=== PATIENT | male | born 1965 | race Caucasian/White ===

== ENCOUNTER 2018-04-20 15:16 | Emergency (ER) | payer OTHER ==
[2018-04-20] MEDS ORDERED: SODIUM CHLORIDE 0.9% 1000ML 1,000 ML IV STA (17:34)
--- NOTE | 2018-04-20 17:52 | EMERGENCY ROOM VISIT NOTE ---
History Report prepared by Cy: Ace Childs Under the Supervision of: Dr. Beulah Wilson M.D. First contact with patient: 17:24 Chief Complaint: OTHER COMPLAINT Stated Complaint: ALCHOL WITHDRAWL History of Present Illness The patient is a 53 year old male who presents to the Emergency Room. The patient's coworker states that the patient was drinking alcohol for the past couple weeks, and then stopped around 3 days ago. The coworker notes that he does not know why the patient stopped drinking. Around that time last week, the coworker states that the patient was just "standing around" and reported seeing hallucinations. He notes that the patient was hospitalized at [facility] in [place] after this for one or two days. He denies the patient vomiting or having abdominal pain, but states that he has not been eating. The patient notes a mild headache and occasional diaphoresis. The coworker states that they are from [place] but are currently working in [place]. He states that the patient does not smoke, and currently lives with "other guys." He notes that the patient has been drinking for years and will occasionally stop for about a year, only to start again. He states that the patient has a history of these current symptoms whenever he stops drinking. He reports that the patient experienced urinary retention for 4 days around 6 months ago and needed to " have his urinary system cleaned." Source of History: patient, other (coworker) Onset: last week Position: other (global) Quality: other (hallucinations and "just standing around") Associated Symptoms: + diaphoresis, No vomiting, No abdominal pain Note: loss of appetite Review of Systems See HPI for pertinent positives & negatives. A total of 10 systems reviewed and were otherwise negative. Past Medical & Surgical Medical Problems: (1) Urinary retention Family History Patient reports no known family medical history. Social History Smoking Status: Never Smoker Alcohol Use: heavy Marital Status: single Housing Status: lives with friends Occupation Status: employed Current/Historical Medications Unable to Obtain Active Prescriptions or Reported Meds Allergies Coded Allergies: No Known Allergies (Unverified , 04/20/18) Physical Exam Vital Signs Date Time Temp Pulse Resp B/P (MAP) Pulse Ox O2 Delivery O2 Flow Rate FiO2 04/21/18 00:32 84 14 159/93 96 Room Air 04/20/18 22:36 86 20 165/106 98 Room Air 04/20/18 21:44 82 8/6/18 20:50 82 20 170/100 97 Room Air 04/20/18 19:25 36.8 89 23 151/100 96 Room Air 04/20/18 17:44 80 04/20/18 17:20 83 18 147/94 97 Room Air 04/20/18 15:46 36.7 76 18 162/99 96 Room Air Physical Exam Vital signs reviewed. General: Patient is minimally conversant, Cameroonian speaking only, and appears somewhat somnolent and diaphoretic. HEENT: No scleral icterus, PERRLA, neck supple. Atraumatic. Cardiovascular: Regular rate and rhythm, no extra sounds. Pulmonary: Clear to auscultation bilaterally, normal work of breathing. Abdomen: Soft, nontender, nondistended, positive bowel sounds. Musculoskeletal: Atraumatic, no peripheral edema. Neurologic: Patient awake alert and reluctantly follows commands. Equal strength in all 4 extremities. Cranial nerves 2 through 12 grossly intact. Skin: Warm, dry, no rash Medical Decision & Procedures ER Provider Diagnostic Interpretation: Radiology results as stated below per my review and radiologist interpretation: HEAD WITHOUT CONTRAST (CT) CLINICAL HISTORY: 53 years-old Male presenting with AMS, hallucinations. TECHNIQUE: Multidetector CT imaging of the head was performed without the use of intravenous contrast. IV contrast: None. A dose lowering technique was used consistent with the principles of ALARA (as low as reasonably achievable). COMPARISON: None. CT DOSE (mGy.cm): The estimated cumulative dose is 655.73 mGy.cm. FINDINGS: Administrative Office Clerk topogram: Unremarkable. Ventricles and sulci normal in size. Brain parenchyma normal in appearance with preserved dozier-white differentiation. No mass effect or midline shift. No hemorrhage or acute territorial infarct. No extra-axial fluid collection. Paranasal sinuses and mastoid air cells clear. Calvarium intact. Fracture deformity of the nasal bones, age indeterminate. IMPRESSION: 1. No acute intracranial abnormality. 2. Age-indeterminate nasal bone fractures. Electronically signed by: Steven Robertson M.D. 04/20/2018 6:30 PM Dictated Date/Time: 04/20/2018 6:25 PM Laboratory Results 04/20/18 18:00 Red Blood Count 4.63, Mean Corpuscular Volume 92.9, Mean Corpuscular Hemoglobin 31.5, Mean Corpuscular Hemoglobin Concent 34.0, Mean Platelet Volume 10.7, Neutrophils (%) (Auto) 49.4, Lymphocytes (%) (Auto) 35.8, Monocytes (%) (Auto) 10.0, Eosinophils (%) (Auto) 4.1, Basophils (%) (Auto) 0.4, Neutrophils # (Auto ) 3.82, Lymphocytes # (Auto) 2.77, Monocytes # (Auto) 0.77, Eosinophils # (Auto ) 0.32, Basophils # (Auto) 0.03 04/20/18 18:00 Test 04/20/18 18:00 04/20/18 18:40 04/20/18 20:20 04/20/18 20:45 White Blood Count 7.73 K/uL (4.8-10.8) Red Blood Count 4.63 M/uL (4.7-6.1) Hemoglobin 14.6 g/dL (14.0-18.0) Hematocrit 43.0 % (42-52) Mean Corpuscular Volume 92.9 fL (80-100) Mean Corpuscular Hemoglobin 31.5 pg (25-34) Mean Corpuscular Hemoglobin Concent 34.0 g/dl (32-36) Platelet Count 194 K/uL (130-400) Mean Platelet Volume 10.7 fL (7.4-10.4) Neutrophils (%) (Auto) 49.4 % Lymphocytes (%) (Auto) 35.8 % Monocytes (%) (Auto) 10.0 % Eosinophils (%) (Auto) 4.1 % Basophils (%) (Auto) 0.4 % Neutrophils # (Auto) 3.82 K/uL (1.4-6.5) Lymphocytes # (Auto) 2.77 K/uL (1.2-3.4) Monocytes # (Auto) 0.77 K/uL (0.11-0.59) Eosinophils # (Auto) 0.32 K/uL (0-0.5) Basophils # (Auto) 0.03 K/uL (0-0.2) RDW Standard Deviation 43.6 fL (36.4-46.3) RDW Coefficient of Variation 12.9 % (11.5-14.5) Immature Granulocyte % (Auto) 0.3 % Immature Granulocyte # (Auto) 0.02 K/uL (0.00-0.02) Prothrombin Time 10.6 SECONDS (9.0-12.0) Prothromb Time International Ratio 1.0 (0.9-1.1) Activated Partial Thromboplast Time 26.9 SECONDS (21.0-31.0) Partial Thromboplastin Ratio 1.0 Anion Gap 8.0 mmol/L (3-11) Estimated GFR () 114.2 Estimated GFR (Non- 98.5 BUN/Creatinine Ratio 15.0 (10-20) Calcium Level 8.7 mg/dl (8.5-10.1) Magnesium Level 2.6 mg/dl (1.8-2.4) Total Bilirubin 0.8 mg/dl (0.2-1) Direct Bilirubin 0.2 mg/dl (0-0.2) Aspartate Amino Transf (AST/SGOT) 35 U/L (15-37) Alanine Aminotransferase (ALT/SGPT) 64 U/L (12-78) Alkaline Phosphatase 74 U/L (45-117) Ammonia < 10.0 umol/L (11-32) Total Creatine Kinase 428 U/L (39-308) Total Protein 8.1 gm/dl (6.4-8.2) Albumin 4.1 gm/dl (3.4-5.0) Thyroid Stimulating Hormone (TSH) 1.270 uIu/ml (0.300-4.500) Salicylates Level < 1.7 mg/dl (2.8-20) Acetaminophen Level < 2 ug/ml (10-30) Ethyl Alcohol mg/dL < 3.0 mg/dl (0-3) Urine Color YELLOW Urine Appearance CLEAR (CLEAR) Urine pH 7.0 (4.5-7.5) Urine Specific [place] 1.021 (1.000-1.030) Urine Protein NEG (NEG) Urine Glucose (UA) TRACE (NEG) Urine Ketones 1+ (NEG) Urine Occult Blood NEG (NEG) Urine Nitrite NEG (NEG) Urine Bilirubin NEG (NEG) Urine Urobilinogen POS (NEG) Urine Leukocyte Esterase NEG (NEG) Urine Opiates Screen NEG (NEG) Urine Methadone, Qualitative NEG (NEG) Urine Barbiturates NEG (NEG) Urine Phencyclidine (PCP) Level NEG (NEG) Ur Amphetamine/Methamphetamine NEG (NEG) MDMA (Ecstasy) Screen NEG (NEG) Urine Benzodiazepines Screen NEG (NEG) Urine Cocaine Metabolite NEG (NEG) Urine Marijuana (THC) NEG (NEG) Bedside Glucose 99 mg/dl (70-99) Laboratory results per my review. Medications Administered Medications (Trade) Dose Ordered Sig/Morro Route Start Time Stop Time Status Last Admin Dose Admin Sodium Chloride 1,000 ml @ 999 mls/hr Q1H1M STAT IV 04/20/18 17:34 04/20/18 18:34 DC 04/20/18 18:16 999 MLS/HR ECG Per My Interpretation Indication: altered mental status Rate (beats per minute): 77 Rhythm: normal sinus Findings: no acute ischemic change, no ectopy, other (QTC 475) ED Course 1728: Past medical records reviewed. The patient was evaluated in room C6. A complete history and physical examination was performed. 1733: Ordered Sodium Chloride 1000 ml @ 999 mls/hr IV 2048: I updated with the patient. Patient holds his eyes closed when I attempt to open them. The notes from [facility] requested inpatient mental health treatment that was not provided. 2050: I called the social work case manager. 2122: I spoke with - [facility] Hospitalist. He will reevaluate the patient for hospitalization. Medical Decision Differential diagnosis: Etiologies such as metabolic, infection, hypoglycemia, electrolyte abnormalities , cardiac sources, intracerebral event, toxicologic, neurologic, as well as others were entertained. This patient was evaluated and appeared to be in no significant distress. Physical examination is fairly unrevealing. Patient is Cameroonian-speaking only and was minimally conversant with his friend who was initially at the bedside. He did respond to commands given during the physical exam. The patient remained in the emergency department for multiple hours. There is no evidence of acute intoxication or alcohol withdrawal. Urinalysis is clear and U tox is negative. It was very difficult to obtain records from the patient's recent hospitalization at [facility]. He signed a different name on the consent initially. Medical records would not release information. On a second attempt , the patient was found to be unresponsive to verbal and painful stimuli, although his telemetry and vital signs remained stable. His glucose was normal. CT scan of the head reveals no evidence of acute intracranial process. After several hours, using the Cameroonian interpretation tablet, and attempting to engage with the patient, he became responsive. He was able to resist passive eye opening. Eventually the patient was able to sign his name and medical records were released from [facility]. The hospitalist service was consulted for the episodic altered mental status. I do not suspect alcohol to be a factor in the patient's presentation today, however his examination in the ER is severely limited by his withdrawn state. Medication Reconcilliation Current Medication List: was personally reviewed by me Blood Pressure Screening Patient's blood pressure: Elevated blood pressure referred to hospitalist Consults Time Called: 2050 Consulting Physician: Dr. Maria Elena Jaffe [facility] Hospitalist Returned Call: [address] Maria Elena Jaffe [facility] Hospitalist. He will reevaluate the patient for hospitalization. Impression Primary Impression: Altered mental status Scribe Attestation The scribe's documentation has been prepared under my direction and personally reviewed by me in its entirety. I confirm that the note above accurately reflects all work, treatment, procedures, and medical decision making performed by me. Departure Information Dispostion Being Evaluated By Hospitalist Prescriptions Unable to Obtain Active Prescriptions or Reported Meds Referrals No Doctor, Assigned (PCP) Patient Instructions My [facility]
[2018-04-20 18:09] LABS: BASO % 0.4 %; BASO ABS # 0.03 K/uL (0-0.2); EOS % 4.1 %; EOS ABS # 0.32 K/uL (0-0.5); HEMOGLOBIN 14.6 g/dL (14.0-18.0); IG# 0.02 K/uL (0.00-0.02); LYMPH % 35.8 %; LYMPH ABS # 2.77 K/uL (1.2-3.4); MEAN CELL VOLUME 92.9 fL (80-100); MEAN CORPUSCULAR HEMOGLOBIN 31.5 pg (25-34); MEAN PLATELET VOLUME 10.7 fL (7.4-10.4); MONO ABS # 0.77 K/uL (0.11-0.59); NEUT % 49.4 %; NEUT ABS # 3.82 K/uL (1.4-6.5); PLATELET COUNT 194 K/uL (130-400); RED CELL DISTRIBUTION WIDTH CV 12.9 % (11.5-14.5); RED CELL DISTRIBUTION WIDTH SD 43.6 fL (36.4-46.3); WHITE BLOOD COUNT 7.73 K/uL (4.8-10.8)
[2018-04-20 18:18] LABS: PTT PATIENT 26.9 SECONDS (21.0-31.0)
--- NOTE | 2018-04-20 18:31 | DIAGNOSTIC IMAGING REPORT ---
HEAD WITHOUT CONTRAST (CT) CLINICAL HISTORY: 53 years-old Male presenting with AMS, hallucinations. TECHNIQUE: Multidetector CT imaging of the head was performed without the use of intravenous contrast. IV contrast: None. A dose lowering technique was used consistent with the principles of ALARA (as low as reasonably achievable). COMPARISON: None. CT DOSE (mGy.cm): The estimated cumulative dose is 655.73 mGy.cm. FINDINGS: Expansion Joint Finisher topogram: Unremarkable. Ventricles and sulci normal in size. Brain parenchyma normal in appearance with preserved dozier-white differentiation. No mass effect or midline shift. No hemorrhage or acute territorial infarct. No extra-axial fluid collection. Paranasal sinuses and mastoid air cells clear. Calvarium intact. Fracture deformity of the nasal bones, age indeterminate. IMPRESSION: 1. No acute intracranial abnormality. 2. Age-indeterminate nasal bone fractures. Electronically signed by: Steven Robertson M.D. 04/20/2018 6:30 PM Dictated Date/Time: 04/20/2018 6:25 PM
[2018-04-20 18:41] LABS: ALBUMIN 4.1 gm/dl (3.4-5.0); ALKALINE PHOSPHATASE 74 U/L (45-117); ALT/SGPT 64 U/L (12-78); AST/SGOT 35 U/L (15-37); BLOOD UREA NITROGEN 13 mg/dl (7-18); CALCIUM 8.7 mg/dl (8.5-10.1); CARBON DIOXIDE 28 mmol/L (21-32); GLUCOSE 99 mg/dl (70-99); POTASSIUM 3.6 mmol/L (3.5-5.1); SODIUM 139 mmol/L (136-145); TOTAL PROTEIN 8.1 gm/dl (6.4-8.2)
[2018-04-20 19:25] VITALS: TEMP 36.8
[2018-04-21] MEDS ORDERED: SODIUM CHLORIDE 0.9% 1000ML 1,000 ML IV STA (02:10)
--- NOTE | 2018-04-21 02:20 | Medical Consult ---
Consultation Date of Consultation: Apr 21, 2018. Attending Physician: Reason for Consultation: Altered mental status History of Present Illness Patient is a 53 year old male with no significant past medical who was brought to the ED by his coworkers. I use the in room otolaryngology teacher to help with my HPI as well as the ED notes. 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 His coworker also noticed that he was just "standing around" and was not very interactive. He was therefore brought to the ED for further evaluation. The patient notes that his last drink was approximately 10 days ago. He is usually a heavy drinker but will occasionally stop drinking for months at a time. He works construction and is from [place] but he is currently working in [employer]. He currently lives with the guuserADgents he is working with. He notes that he is not having any hallucinations, thoughts of SI, depression, anxiety, nausea, vomiting or abdominal pain. He denies any drug use. He was seen in [facility] recently where they did not come up with any significant findings. In the ED his labs were notable for an elevated CK. CT scan of his head was normal. We were asked to evaluate the patient for admission as he does not have a ride to get home. Past Medical/Surgical History Medical Problems: (1) Altered mental status Status: Acute Family History Patient reports no known family medical history. Social History Smoking Status: Never Smoker Alcohol Use: heavy Drug Use: none Marital Status: single Housing Status: lives with friends Occupation Status: employed Allergies Coded Allergies: No Known Allergies (Unverified , 04/20/18) Home Medications none Current Inpatient Medications none Review of Systems 10 systems were reviewed and negative except as noted in the HPI Physical Exam Date Time Temp Pulse Resp B/P (MAP) Pulse Ox O2 Delivery O2 Flow Rate FiO2 04/21/18 00:32 84 14 159/93 96 Room Air 04/20/18 22:36 86 20 165/106 98 Room Air 04/20/18 21:44 82 04/20/18 20:50 82 20 170/100 97 Room Air 04/20/18 19:25 36.8 89 23 151/100 96 Room Air 04/20/18 17:44 80 04/20/18 17:20 83 18 147/94 97 Room Air 04/20/18 15:46 36.7 76 18 162/99 96 Room Air General Appearance: WD/WN, no apparent distress Eyes: normal inspection, PERRL, + abnormal sclerae exam (erythematous) ENT: pharynx normal Neck: supple, thyroid normal, no JVD, no carotid bruits, trachea midline Respiratory/Chest: lungs clear, no respiratory distress, no accessory muscle use Cardiovascular: regular rate, rhythm, no murmur, normal peripheral pulses Abdomen/GI: normal bowel sounds, non tender, soft Extremities/Musculoskelatal: normal inspection, no pedal edema, normal range of motion 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, no motor/sensory deficits, alert, normal mood/affect, normal reflexes, oriented x 3 Skin: no rash, + diaphoresis Laboratory Results Last 24 Hours Test 04/20/18 18:00 04/20/18 18:40 04/20/18 20:20 04/20/18 20:45 White Blood Count 7.73 K/uL Red Blood Count 4.63 M/uL Hemoglobin 14.6 g/dL Hematocrit 43.0 % Mean Corpuscular Volume 92.9 fL Mean Corpuscular Hemoglobin 31.5 pg Mean Corpuscular Hemoglobin Concent 34.0 g/dl Platelet Count 194 K/uL Mean Platelet Volume 10.7 fL Neutrophils (%) (Auto) 49.4 % Lymphocytes (%) (Auto) 35.8 % Monocytes (%) (Auto) 10.0 % Eosinophils (%) (Auto) 4.1 % Basophils (%) (Auto) 0.4 % Neutrophils # (Auto) 3.82 K/uL Lymphocytes # (Auto) 2.77 K/uL Monocytes # (Auto) 0.77 K/uL Eosinophils # (Auto) 0.32 K/uL Basophils # (Auto) 0.03 K/uL RDW Standard Deviation 43.6 fL RDW Coefficient of Variation 12.9 % Immature Granulocyte % (Auto) 0.3 % Immature Granulocyte # (Auto) 0.02 K/uL Prothrombin Time 10.6 SECONDS Prothromb Time International Ratio 1.0 Activated Partial Thromboplast Time 26.9 SECONDS Partial Thromboplastin Ratio 1.0 Sodium Level 139 mmol/L Potassium Level 3.6 mmol/L Chloride Level 103 mmol/L Carbon Dioxide Level 28 mmol/L Anion Gap 8.0 mmol/L Blood Urea Nitrogen 13 mg/dl Creatinine 0.90 mg/dl Estimated GFR () 114.2 Estimated GFR (Non- 98.5 BUN/Creatinine Ratio 15.0 Random Glucose 99 mg/dl Calcium Level 8.7 mg/dl Magnesium Level 2.6 mg/dl Total Bilirubin 0.8 mg/dl Direct Bilirubin 0.2 mg/dl Aspartate Amino Transf (AST/SGOT) 35 U/L Alanine Aminotransferase (ALT/SGPT) 64 U/L Alkaline Phosphatase 74 U/L Ammonia < 10.0 umol/L Total Creatine Kinase 428 U/L Total Protein 8.1 gm/dl Albumin 4.1 gm/dl Thyroid Stimulating Hormone (TSH) 1.270 uIu/ml Salicylates Level < 1.7 mg/dl Acetaminophen Level < 2 ug/ml Ethyl Alcohol mg/dL < 3.0 mg/dl Urine Color YELLOW Urine Appearance CLEAR Urine pH 7.0 Urine Specific [place] 1.021 Urine Protein NEG Urine Glucose (UA) TRACE Urine Ketones 1+ Urine Occult Blood NEG Urine Nitrite NEG Urine Bilirubin NEG Urine Urobilinogen POS Urine Leukocyte Esterase NEG Urine Opiates Screen NEG Urine Methadone, Qualitative NEG Urine Barbiturates NEG Urine Phencyclidine (PCP) Level NEG Ur Amphetamine/Methamphetamine NEG MDMA (Ecstasy) Screen NEG Urine Benzodiazepines Screen NEG Urine Cocaine Metabolite NEG Urine Marijuana (THC) NEG Bedside Glucose 99 mg/dl Assessment & Plan Patient is a 53 year old male with no significant past medical history who was brought to the hospital by his friends secondary to altered mental status. His vitals have been significant for HTN in the 160's systolically. His labs are significant for a CK of 428. His CT scan of his head was unremarkable. He received 2 L of fluids while in the ED. The only pertinent positive on his examination was that he noted feeling like people were trying to get him a few days ago while at work but now he feels better and no longer has this feeling. He denies any other psychiatric symptoms. I believe patient altered mental status was due to alcohol withdrawal and dehydration. He was likely dehydrated secondary to not eating or drinking and working out in the hot sun a 90 day. I doubt he is in alcohol withdrawal anymore as he notes it has been 10 days since his last drink, he has a negative urine tox and alcohol level. Patient does not appear to need admission and can be safely discharged once a ride arrives to pick him up. Attending addendum: I have physically seen this patient, have supervised the medical residents activities, and agree with the H&P unless as otherwise noted. Assessment and Plan: As above, this patient's symptoms are primarily related to dehydration from working outside in 90 plus weather, without adequate water intake to supplement. Is unclear how much alcohol withdrawal has effect on his present situation, but he may be predisposed to hallucinations due to his significant alcohol use. He is encouraged to take a multivitamin and vitamin B complex daily. Is also encouraged to drink adequate amounts of fluids on hot days like the day he worked yesterday. Patient is safe for discharge from the emergency department, and must comply with the above suggestions.
[2018-04-21 02:55] VITALS: BP 144/65; PULSE 83; O2SAT 97
== END 2018-04-21 02:55 | disposition home or self-care (01) ==
LOC: C.EDB 15:18 → C.EDC 04-21 02:55
DX: R41.82 Altered mental status, unspecified (principal)